=== PATIENT | female | born 1985 | race Caucasian/White ===

== ENCOUNTER 2020-09-06 12:00 | Outpatient (CLI) | payer MEDICARE ==
[2020-09-06] VITALS (22 sets, daily range): BP systolic 94–134; BP diastolic 66–88
== END 2020-09-06 23:59 | disposition home or self-care (01) ==
LOC: CARD DIAG 12:00
PROVIDERS: ATTEND Internal Medicine Cardiovascular Disease
DX: R55 Syncope and collapse (principal)
CPT/HCPCS: 93660